=== PATIENT | female | born 1995 | race Caucasian/White ===

== ENCOUNTER 2017-03-06 22:21 | Emergency (ER) | payer MEDICAID, OTHER ==
[2017-03-06 22:48] VITALS: BP 121/80; PULSE 67; RESP 18; TEMP 97.9; O2SAT 100
--- NOTE | 2017-03-06 22:53 | ED PDOC ---
HPI: General Adult Time Seen by Provider: 03/06/17 22:50 Chief Complaint (Nursing): Female Genitourinary Chief Complaint (Provider): possible abscess History Per: Patient Additional Complaint(s): 21-year-old female with no past medical history presents to emergency department with 3 small pustular lesions to her right buttocks and right inner thigh that she noticed 3 days ago. Patient states one of the lesions bursted today and she noticed some pus and bleeding. Patient denies fever or chills. She denies any injury to the affected area. Past Medical History Reviewed: Historical Data, Nursing Documentation, Vital Signs Vital Signs: Last Vital Signs Temp 97.9 F 03/06/17 22:45 Pulse 67 03/06/17 22:45 Resp 18 03/06/17 22:45 BP 121/80 03/06/17 22:45 Pulse Ox 100 03/06/17 22:53 - Medical History PMH: No Chronic Diseases - Surgical History Surgical History: No Surg Hx - Family History Family History: States: No Known Family Hx - Living Arrangements Living Arrangements: With Family - Social History Current smoker - smoking cessation education provided: No Alcohol: None Drugs: Denies - Home Medications Home Medications: Ambulatory Orders Medication Instructions Recorded Acetaminophen 975 mg PO Q6H PRN #20 tab 08/23/16 Cephalexin [Keflex] 500 mg PO BID #20 capsule 08/23/16 Clindamycin [Cleocin] 0 mg PO QID #28 cap 03/06/17 Fluconazole [Diflucan] 150 mg PO ONCE #1 tab 03/06/17 Ibuprofen [Motrin] 600 mg PO Q6 PRN #15 tab 03/06/17 - Allergies Allergies/Adverse Reactions: Allergies Allergy/AdvReac Type Severity Reaction Status Date / Time No Known Allergies Allergy Verified 03/06/17 22:48 Review of Systems ROS Statement: Except As Marked, All Systems Reviewed And Found Negative Constitutional: Negative for: Fever Skin: Positive for: Lesions (pustular) Physical Exam - Reviewed Nursing Documentation Reviewed: Yes Vital Signs Reviewed: Yes - Physical Exam Appears: Positive for: Well, Non-toxic, No Acute Distress Skin: Positive for: Rash (2 superficial pustular lesions noted to right buttocks , no active drainage or bleeding, additional superficial pustular lesion noted to left medial thigh, localized erythema noted to all 3 pustular lesions and no erythematous streaking, lesions or non-fluctuant) Eye Exam: Positive for: Normal appearance Neurologic/Psych: Positive for: Alert, Oriented - Laboratory Results Urine POC: Negative - ECG O2 Sat by Pulse Oximetry: 100 Pulse Ox Interpretation: Normal Medical Decision Making Medical Decision Making: Impression: Pustular lesions Patient was given initial doses of Motrin and clindamycin in the ED along with rx for same. Wound care instructions provided. Disposition - Clinical Impression Clinical Impression: Pustular lesion - Patient ED Disposition Is Patient to be Admitted: No Counseled Patient/Family Regarding: Diagnosis, Need For Followup, Rx Given - Disposition Referrals: [facility] [Outside] Disposition: Routine/Home Disposition Time: 23:10 Condition: STABLE Additional Instructions: Take prescription medications as directed. Soak in bath with warm water and epsom salts as often as possible. Wound re-check in 2-3 days. Prescriptions: Clindamycin [Cleocin] 0 mg PO QID #28 cap Fluconazole [Diflucan] 150 mg PO ONCE #1 tab Ibuprofen [Motrin] 600 mg PO Q6 PRN #15 tab PRN Reason: Pain, Moderate (4-7) Instructions: Abscess (ED) Forms: [employer] (Yoruba)
== END 2017-03-06 23:19 | disposition home or self-care (01) ==
LOC: H.ER 22:21
DX: L02.32 Furuncle of buttock (principal)

== ENCOUNTER 2017-03-07 10:36 | Emergency (ER) | payer OTHER ==
[2017-03-07 10:41] VITALS: BP 124/83; PULSE 73; RESP 17; TEMP 98.7; O2SAT 100; BMI 21.1
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
== END 2017-03-07 15:00 | disposition home or self-care (01) ==
LOC: H.ER 10:36
DX: S16.1XXA Strain of muscle, fascia and tendon at neck level, initial encounter (principal); R51 Headache; V49.40XA Driver injured in collision with unspecified motor vehicles in traffic accident, initial encounter